=== PATIENT | female | born 2000 | race Caucasian/White ===

== ENCOUNTER 2020-07-10 19:17 | Emergency (ER) | payer SELFPAY ==
--- NOTE | ~2020-07-10 | XR_ITS ---
EXAMINATION: XR nasal bones min 3V EXAM DATE: 07/10/2020 20:13 INDICATION: Initial encounter following injury, with pain of the nose. TECHNIQUE: Nasal bone frontal projection, bilateral lateral projections. There is no prior study fo r comparison. FINDINGS: There are no acute nasal bone fractures or dislocations identified. There is no subcutaneo us gas. The soft tissue is unremarkable. There are no radiopaque foreign bodies. IMPRESSION: 1. Nasal bone exam without acute osseous findings. Reviewed, dictated and finalized at location A.
[2020-07-10 19:32] VITALS: BP 118/74; PULSE 92; RESP 16; TEMP 36.4; O2SAT 99
--- NOTE | 2020-07-10 20:38 | ED.GENADULT ---
HPI - General Adult General Chief complaint: Head Injury Stated complaint: possible broken nose Time Seen by Provider: 07/10/20 20:09 Source: patient History of Present Illness HPI narrative: Patient is a 19 y/o female complaining of nose pain. She states that she bumped her nose on someone else's head 1 1/2 hours ago. She describes her pain as burning and rates her pain as 5/10. She had some nose bleed earlier, but the bleeding has stopped. She denies any LOC, nausea, vomiting, neck pain or back pain. Related Data Home Medications Medication Instructions Recorded Confirmed No Home Medications 07/10/20 07/10/20 Allergies Allergy/AdvReac Type Severity Reaction Status Date / Time No Known Allergies Allergy Verified 07/10/20 19:32 Review of Systems Constitutional: Constitutional: Denies chills, Denies fever(s), Denies headache(s) and Denies weakness Eyes: Eyes: Denies blurry vision ENT: Reports as per HPI, Denies headache(s), Reports epistaxis (resolved), Denies neck pain and Reports nose pain Cardiovascular: Cardiovascular: Denies chest pain and Denies dyspnea Respiratory: Respiratory: Denies cough and Denies dyspnea Gastrointestinal: Gastrointestinal: Denies abdominal pain, Denies diarrhea, Denies nausea and Denies vomiting Genitourinary: Genitourinary: Denies hematuria and Denies dysuria Musculoskeletal: Musculoskeletal: Denies back pain and Denies neck pain Neurologic: Denies headache(s) and Denies weakness PMFSH Social History Social History Gender identity (if verbalized by the patient): Female Exam Const: General: no acute distress and well developed Orientation/consciousness: oriented to person, oriented to place, oriented to time and patient oriented x3 HENMT: Head: normocephalic Ears: external ears normal General nose exam: Other nasal findings present (bruise on nose, tender to palpation) Eyes: General: appearance normal, both eyes and all related structures Conjunctivae: conjunctivae normal Neck: Neck: normal visual inspection and full ROM Chest: Chest palpation & inspection: normal inspection of the chest and no tenderness Resp: Effort & Inspection: normal respiratory effort Auscultation: clear to auscultation bilaterally Cardio: Rate: regular rate Rhythm: regular rhythm GI: GI Palp: No abdominal tenderness and Yes Soft to palpation Skin: General skin exam: normal color and turgor normal Neuro: General: oriented to person, oriented to place, oriented to time and patient oriented x3 Cognition (Neuro): normal cognition Extrem: General: normal to inspection, full ROM and no pedal edema Psych: Appearance: grossly normal Mental Status: mental status grossly normal Affect: normal affect Course Vital Signs Vital signs: Vital Signs Temperature 36.4 C L 07/10/20 19:32 Pulse Rate 92 07/10/20 19:32 Respiratory Rate 16 07/10/20 19:32 Blood Pressure 118/74 07/10/20 19:32 Pulse Oximetry 99 07/10/20 19:32 Temperature 36.4 C L 07/10/20 19:32 Pulse Rate 92 07/10/20 19:32 Respiratory Rate 16 07/10/20 19:32 Blood Pressure 118/74 07/10/20 19:32 Pulse Oximetry 99 07/10/20 19:32 Medical Decision Making Vital Signs Vital Signs: Vital Signs Temperature 36.4 C L 07/10/20 19:32 Pulse Rate 92 07/10/20 19:32 Respiratory Rate 16 07/10/20 19:32 Blood Pressure 118/74 07/10/20 19:32 Pulse Oximetry 99 07/10/20 19:32 Temperature 36.4 C L 07/10/20 19:32 Pulse Rate 92 07/10/20 19:32 Respiratory Rate 16 07/10/20 19:32 Blood Pressure 118/74 07/10/20 19:32 Pulse Oximetry 99 07/10/20 19:32 Discharge Plan Discharge Clinical Impression: Contusion of nose Qualifiers: Encounter type: initial encounter Qualified Code(s): S00.33XA - Contusion of nose, initial encounter Patient Disposition: Home, Self-Care Condition: Stable Instructions: Nasal Contusion (ED)
[2020-07-10 20:50] VITALS: BP 113/80; PULSE 86; RESP 17; O2SAT 100
== END 2020-07-10 20:50 | disposition home or self-care (01) ==
PROVIDERS: Emergency Provider Emergency Medicine
DX: S00.33XA Contusion of nose, initial encounter (principal); W51.XXXA Accidental striking against or bumped into by another person, initial encounter
CPT/HCPCS: 70160; 99283